=== PATIENT | female | born 1975 | race Two or more races ===

== ENCOUNTER 2020-04-30 11:10 | Emergency (ER) | payer MEDICAID ==
[~2020-04-30] VITALS: Ht 157.5 cm; Wt 65.8 kg
--- NOTE | 2020-04-30 11:23 | NUR ---
DR PARADA AT BEDSIDE FOR EVAL.
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
[2020-04-30 11:32] VITALS: BP 117/72
[2020-04-30 11:48] LABS: BASOPHILS % (AUTO) 0.1 % (0.0-2.0); EOSINOPHILS % (AUTO) 5.1 % (0.0-6.0); HEMATOCRIT 35 % (33-45); HEMOGLOBIN 11.6 g/dL (11.5-14.8); LYMPHOCYTES # (AUTO) 0.9 /CMM (0.8-4.8); LYMPHOCYTES % (AUTO) 26.1 % (20.0-44.0); MEAN CORPUSCULAR HGB CONC 33 g/dl (31.0-36.0); MEAN CORPUSCULAR VOLUME 94 fL (82-100); MONOCYTES # (AUTO) 0.5 /CMM (0.1-1.30); MONOCYTES % (AUTO) 14.5 % (2.0-12.0); NEUTROPHILS # (AUTO) 1.8 /CMM (1.8-8.9); NEUTROPHILS % (AUTO) 54.2 % (43.0-81.0); PLATELET COUNT (AUTO) 150 /CMM (150-450); RED BLOOD CELL COUNT(AUTO) 3.76 MIL/uL (4.0-5.2); WHITE BLOOD COUNT (AUTO) 3.4 K/uL (4.3-11.0)
[2020-04-30 11:55] LABS: CALCIUM, SERUM 8.3 mg/dL (8.5-10.1); CARBON DIOXIDE 21 mmol/L (21-32); CHLORIDE 104 mmol/L (98-107); CREATININE 0.6 mg/dL (0.6-1.3); GLUCOSE 146 mg/dL (74-106); POTASSIUM 3.7 mmol/L (3.5-5.1); SODIUM SERUM 136 mmol/L (136-145); UREA NITROGEN, BLOOD 9 mg/dL (7-18)
[2020-04-30 11:56] LABS: APPEARANCE,URINE CLEAR (CLEAR); BILIRUBIN,URINE NEGATIVE (NEGATIVE); BLOOD, URINE NEGATIVE Ery/uL (NEGATIVE); COLOR,URINE YELLOW (YELLOW); KETONES,URINE NEGATIVE (NEGATIVE); LEUKOCYTE ESTERASE ,URINE NEGATIVE (NEGATIVE); NITRITE, URINE NEGATIVE (NEGATIVE); PROTEIN,URINE NEGATIVE (NEGATIVE); UGLUCOSE NEGATIVE (NEGATIVE); UROBILINOGEN,URINE 0.2 EU/dL (0.2)
[2020-04-30] MEDS ORDERED: TDAP [DIPH/PERTUSSIS/TET] 0.5 ML VIAL IM ONE ×2 (12:00→12:02)
[2020-04-30 12:01] LABS: ALANINE AMINOTRANSFERASE 32 U/L (12-78); ALBUMIN 2.8 g/dL (3.4-5.0); ALCOHOL, BLOOD 108 mg/dL (0-0); ALKALINE PHOSPHATASE 151 U/L (46-116); ASPARTATE AMINOTRANSFERASE 44 U/L (15-37); BILIRUBIN,DIRECT 0.4 mg/dL (0.0-0.2); BILIRUBIN,TOTAL 0.9 mg/dL (0.2-1.0); TOTAL PROTEIN, SERUM 6.7 g/dL (6.4-8.2)
[2020-04-30 12:02] LABS: ACETAMINOPHEN < 10 ug/ml (10-30); SALICYLATE < 2.8 mg/dL (2.8-20.0)
--- NOTE | 2020-04-30 12:14 | NUR ---
PT GIVEN TETANUS GIVEN LEFT DELTID IM
--- NOTE | 2020-04-30 12:17 | NUR ---
CHRISTIAN COUNSELOR CALLED [facility] [phone] WILL BE HERE IN 60 MINS.
--- NOTE | 2020-04-30 12:25 | NUR ---
WOUND CARE PROVIDED.
--- NOTE | 2020-04-30 13:15 | NUR ---
WAS INFORMED BY LAYO THAT PT ELOPED FROM ED. PT DID TOLD AARONTER THAT SHE IS NOT SUICIDAL AND DOES NOT WISH TO STAY FOR A PET EVAL. DR PARADA MADE AWARE.
== END 2020-04-30 13:19 | disposition left against medical advice (07) ==
LOC: ER 11:15
DX: S61.512A Laceration without foreign body of left wrist, initial encounter (principal); S61.511A Laceration without foreign body of right wrist, initial encounter; F32.9 Major depressive disorder, single episode, unspecified; F10.129 Alcohol abuse with intoxication, unspecified; F41.9 Anxiety disorder, unspecified; F43.10 Post-traumatic stress disorder, unspecified; G62.9 Polyneuropathy, unspecified; Z88.6 Allergy status to analgesic agent; X78.8XXA Intentional self-harm by other sharp object, initial encounter; Y93.89 Activity, other specified; Y92.89 Other specified places as the place of occurrence of the external cause; Y99.8 Other external cause status; Y90.5 Blood alcohol level of 100-119 mg/100 ml
CPT/HCPCS: 36415; 80048; 80076; 80305; 80307; 80329; 81001; 84703; 85025; 90471; 90715; 99283; G0480; 81000-TC

== ENCOUNTER 2020-11-09 02:44 | Emergency (ER) | payer MEDICAID ==
[~2020-11-09] VITALS: Ht 157.5 cm; Wt 68.0 kg
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
--- NOTE | 2020-11-09 03:02 | NUR ---
[employer] AT BEDSIDE SPEAKING WITH MARKUSNET.
--- NOTE | 2020-11-09 04:19 | NUR ---
PATIENT EXPLAINED NOT TO WIPE WHEN URINATING SO THAT SHE WOULD NOT WIPE OFF EVIDENCE BEFORE BEING SEEN BY SART.
[2020-11-09] MEDS ORDERED: IBUPROFEN 600 MG TABLET ONE (05:36)
[2020-11-09] MEDS: IBUPROFEN 600 MG TABLET PO ONE (06:08)
--- NOTE | 2020-11-09 06:26 | NUR ---
pt is medically stalbe for d/c. Patient discharged to home in stable condition. Written and verbal after care instructions given. Patient verbalizes understanding of instruction.
[2020-11-09 06:27] VITALS: BP 118/88
== END 2020-11-09 06:29 | disposition home or self-care (01) ==
LOC: ER 02:46
DX: T76.21XA Adult sexual abuse, suspected, initial encounter (principal); F32.9 Major depressive disorder, single episode, unspecified; F41.9 Anxiety disorder, unspecified; F43.10 Post-traumatic stress disorder, unspecified; F10.10 Alcohol abuse, uncomplicated; Y90.9 Presence of alcohol in blood, level not specified; Z90.49 Acquired absence of other specified parts of digestive tract; Z88.0 Allergy status to penicillin; Z88.1 Allergy status to other antibiotic agents; Z88.6 Allergy status to analgesic agent; Z88.5 Allergy status to narcotic agent

== ENCOUNTER 2020-11-26 03:03 | Emergency (ER) | payer MEDICAID ==
[~2020-11-26] VITALS: Ht 157.5 cm; Wt 62.1 kg
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
[2020-11-26 03:33] LABS: BASOPHILS % (AUTO) 0.2 % (0.0-2.0); EOSINOPHILS % (AUTO) 3.8 % (0.0-6.0); HEMATOCRIT 37 % (33-45); HEMOGLOBIN 12.2 g/dL (11.5-14.8); LYMPHOCYTES # (AUTO) 1.5 /CMM (0.8-4.8); LYMPHOCYTES % (AUTO) 26.5 % (20.0-44.0); MEAN CORPUSCULAR HGB CONC 33 g/dl (31.0-36.0); MEAN CORPUSCULAR VOLUME 95 fL (82-100); MONOCYTES # (AUTO) 0.9 /CMM (0.1-1.30); MONOCYTES % (AUTO) 16.2 % (2.0-12.0); NEUTROPHILS % (AUTO) 53.3 % (43.0-81.0); PLATELET COUNT (AUTO) 174 /CMM (150-450); RED BLOOD CELL COUNT(AUTO) 3.87 MIL/uL (4.0-5.2); WHITE BLOOD COUNT (AUTO) 5.7 K/uL (4.3-11.0)
[2020-11-26 03:58] LABS: CALCIUM, SERUM 8.6 mg/dL (8.5-10.1); CARBON DIOXIDE 23 mmol/L (21-32); CHLORIDE 105 mmol/L (98-107); CREATININE 0.8 mg/dL (0.6-1.3); GLUCOSE 80 mg/dL (74-106); POTASSIUM 3.6 mmol/L (3.5-5.1); SODIUM SERUM 142 mmol/L (136-145); UREA NITROGEN, BLOOD 14 mg/dL (7-18)
[2020-11-26 04:03] LABS: ALANINE AMINOTRANSFERASE 33 U/L (12-78); ALBUMIN 3.2 g/dL (3.4-5.0); ALCOHOL, BLOOD < 3 mg/dL (0-0); ALKALINE PHOSPHATASE 121 U/L (46-116); ASPARTATE AMINOTRANSFERASE 40 U/L (15-37); BILIRUBIN,DIRECT 0.5 mg/dL (0.0-0.2); BILIRUBIN,TOTAL 1.5 mg/dL (0.2-1.0); TOTAL PROTEIN, SERUM 7.2 g/dL (6.4-8.2)
[2020-11-26 04:07] LABS: ACETAMINOPHEN < 2 ug/ml (10-30)
[2020-11-26 04:55] LABS: BILIRUBIN,URINE NEGATIVE (NEGATIVE); COLOR,URINE YELLOW (YELLOW); PROTEIN,URINE NEGATIVE (NEGATIVE); UGLUCOSE NEGATIVE (NEGATIVE)
[2020-11-26 04:56] LABS: LEUKOCYTE ESTERASE ,URINE NEGATIVE (NEGATIVE); NITRITE, URINE NEGATIVE (NEGATIVE); UROBILINOGEN,URINE 0.2 EU/dL (0.2)
[2020-11-26 04:57] LABS: BACTERIA,URINE None seen /HPF (None Seen); MUCUS,URINE Many /LPF (None Seen); RBC,URINE 0-2 /HPF (0-2); SQUAMOUS EPITHELIAL CELL,UR Many /HPF (None Seen); WBC,URINE 0-2 /HPF (0-3)
[2020-11-26 06:03] LABS: EOSINOPHILS % (MANUAL) 5 % (0-4); LYMPHOCYTES % (MANUAL) 17 % (16-48); MONOCYTES % (MANUAL) 15 % (0-11.0); NEUTROPHILS % (MANUAL) 63 (42-76)
--- NOTE | 2020-11-26 06:07 | NUR ---
patient is sleeping. easily arousable, VSS. connected to electrical equipment technician. call light is within reach. sitter at bedside
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
--- NOTE | 2020-11-26 07:08 | NUR ---
Patient discharged to home in stable condition. Written and verbal after care instructions given. Patient verbalizes understanding of instruction.
[2020-11-26 07:09] VITALS: BP 127/83
== END 2020-11-26 07:09 | disposition home or self-care (01) ==
LOC: ER 03:06
DX: R46.1 Bizarre personal appearance (principal); G62.9 Polyneuropathy, unspecified; Z90.49 Acquired absence of other specified parts of digestive tract; Z88.0 Allergy status to penicillin; Z88.1 Allergy status to other antibiotic agents; Z88.5 Allergy status to narcotic agent; Z88.8 Allergy status to other drugs, medicaments and biological substances
CPT/HCPCS: 36415; 80048-TC; 80076-TC; 81001; 85025-TC; G0480

== ENCOUNTER 2024-08-19 16:21 | Emergency (ER) | payer MEDICAID ==
[~2024-08-19] VITALS: Ht 157.5 cm; Wt 59.9 kg
[2024-08-19] MEDS: IV NS 0.9% 1,000 ML BAG IV ONE (17:20)
[2024-08-19] MEDS ORDERED: MORPHINE SULFATE INJ 2 MG/ML DISP.SYRIN ONE (17:23)
[2024-08-19] MEDS: MORPHINE SULFATE INJ 2 MG/ML DISP.SYRIN IV ONE (17:25)
[2024-08-19 17:27] LABS: BASOPHILS % (AUTO) 0.1 % (0.0-2.0); EOSINOPHILS # (AUTO) 0.2 K/uL (0.0-0.7); EOSINOPHILS % (AUTO) 4.3 % (0.0-6.0); HEMATOCRIT 29 % (33-45); HEMOGLOBIN 9.9 g/dL (11.5-14.8); LYMPHOCYTES # (AUTO) 1.2 K/uL (0.8-4.8); LYMPHOCYTES % (AUTO) 26.7 % (20.0-44.0); MEAN CORPUSCULAR HEMOGLOBIN 32 PG (26.0-33.0); MEAN CORPUSCULAR HGB CONC 34 g/dl (31.0-36.0); MEAN CORPUSCULAR VOLUME 95 fL (82-100); MONOCYTES # (AUTO) 0.7 K/uL (0.1-1.30); MONOCYTES % (AUTO) 15.5 % (2.0-12.0); NEUTROPHILS # (AUTO) 2.3 K/uL (1.8-8.9); NEUTROPHILS % (AUTO) 53.4 % (43.0-81.0); PLATELET COUNT (AUTO) 116 K/uL (150-450); RED BLOOD CELL COUNT(AUTO) 3.09 MIL/uL (4.0-5.2); RED CELL DISTRIBUTION WIDTH 15.5 % (11.5-15.0); WHITE BLOOD COUNT (AUTO) 4.3 K/uL (4.3-11.0)
[2024-08-19 17:49] LABS: CALCIUM, SERUM 8.4 mg/dL (8.5-10.1); CREATININE 0.7 mg/dL (0.6-1.3); POTASSIUM 3.8 mmol/L (3.5-5.1)
[2024-08-19 19:00] LABS: INR 1.18 (0.91-1.10); PROTHROMBIN TIME 12.1 SECS (9.2-11.1)
[2024-08-19 19:11] LABS: ALBUMIN 2.6 g/dL (3.4-5.0); BILIRUBIN,DIRECT 0.5 mg/dL (0.0-0.2); TOTAL PROTEIN, SERUM 5.8 g/dL (6.4-8.2)
[2024-08-19 21:53] VITALS: BP 122/80; TEMP 98.6; O2SAT 99
== END 2024-08-19 21:53 | disposition home or self-care (01) ==
LOC: ER 16:58
DX: K62.5 Hemorrhage of anus and rectum (principal); R10.30 Lower abdominal pain, unspecified; R11.0 Nausea; J45.909 Unspecified asthma, uncomplicated; K74.60 Unspecified cirrhosis of liver; F32.9 Major depressive disorder, single episode, unspecified; R10.2 Pelvic and perineal pain; Z87.19 Personal history of other diseases of the digestive system; Z88.0 Allergy status to penicillin; Z88.5 Allergy status to narcotic agent; Z88.8 Allergy status to other drugs, medicaments and biological substances; Z90.49 Acquired absence of other specified parts of digestive tract; Z91.041 Radiographic dye allergy status; Z86.69 Personal history of other diseases of the nervous system and sense organs
CPT/HCPCS: 99285; 74176; 96374; 96361; 85025; 80048; 80076; 36415; 85730; 84702; J7030; J2270

== ENCOUNTER 2025-07-19 16:58 | Emergency (ER) | payer MEDICAID ==
[~2025-07-19] VITALS: Ht 157.5 cm; Wt 77.1 kg
[2025-07-19 17:05] VITALS: TEMP 98.4
[2025-07-19] MEDS ORDERED: ONDANSETRON HCL/PF 4 MG/2 ML VIAL ONE (17:32)
[2025-07-19] MEDS ORDERED: FAMOTIDINE/PF INJ 20 MG/2 ML VIAL IV ONE (17:32)
[2025-07-19] MEDS ORDERED: MORPHINE SULFATE INJ 2 MG/ML DISP.SYRIN ONE (17:32)
[2025-07-19 17:37] LABS: PLATELET COUNT (AUTO) 140 K/uL (150-450); RED BLOOD CELL COUNT(AUTO) 3.67 MIL/uL (4.0-5.2); RED CELL DISTRIBUTION WIDTH 18.5 % (11.5-15.0); WHITE BLOOD COUNT (AUTO) 4.1 K/uL (4.3-11.0)
[2025-07-19 17:38] LABS: APPEARANCE,URINE CLEAR (CLEAR); BLOOD, URINE Trace-intact Ery/uL (NEGATIVE); LEUKOCYTE ESTERASE ,URINE Trace (NEGATIVE); NITRITE, URINE NEGATIVE (NEGATIVE); UGLUCOSE Negative (NEGATIVE)
[2025-07-19 17:39] LABS: ADD URINE CULTURE NO
[2025-07-19 17:40] LABS: SQUAMOUS EPITHELIAL CELL,UR Few /HPF (None Seen)
[2025-07-19] MEDS: ONDANSETRON HCL/PF 4 MG/2 ML VIAL IVP ONE (17:40)
[2025-07-19] MEDS: FAMOTIDINE/PF INJ 20 MG/2 ML VIAL IV ONE (17:40)
[2025-07-19] MEDS: IV NS 0.9% 1,000 ML BAG IV ONE (17:40)
[2025-07-19] MEDS: MORPHINE SULFATE INJ 2 MG/ML DISP.SYRIN IV ONE (17:41)
[2025-07-19 17:44] LABS: CALCIUM, SERUM 8.8 mg/dL (8.5-10.1); CREATININE 0.7 mg/dL (0.6-1.3); SODIUM SERUM 137 mmol/L (136-145); UREA NITROGEN, BLOOD 11 mg/dL (7-18)
[2025-07-19 17:50] LABS: ASPARTATE AMINOTRANSFERASE 31 U/L (15-37); TOTAL PROTEIN, SERUM 6.9 g/dL (6.4-8.2)
[2025-07-19] MEDS ORDERED: CYCL5TAB PO (18:36)
[2025-07-19] MEDS: oxyCODONE/APAP (5/325 MG) 1 UDTAB TABLET PO ONE (18:52)
[2025-07-19] MEDS: CYCLOBENZAPRINE 10 MG TABLET PO ONE (18:52)
[2025-07-19 18:53] VITALS: BP 127/66; O2SAT 99
== END 2025-07-19 18:54 | disposition home or self-care (01) ==
LOC: ER 17:07
DX: M54.50 Low back pain, unspecified (principal); J45.909 Unspecified asthma, uncomplicated; K74.60 Unspecified cirrhosis of liver; F32.A Depression, unspecified; F41.9 Anxiety disorder, unspecified; R07.89 Other chest pain; R10.20 Pelvic and perineal pain unspecified side; Z88.0 Allergy status to penicillin; Z88.5 Allergy status to narcotic agent; Z88.8 Allergy status to other drugs, medicaments and biological substances; Z90.49 Acquired absence of other specified parts of digestive tract
CPT/HCPCS: 99285; 74176; 96374; 96375; 96361; 93005; 85025; 80048; 87086; 83690; 80076; 81001; 36415; 84484; J1308; J2405; J7030; J2270

== ENCOUNTER 2025-07-21 15:07 | Emergency (ER) | payer MEDICAID ==
[~2025-07-21] VITALS: Ht 157.5 cm; Wt 77.1 kg
[~2025-07-21 15:07] MED LIST: CYCL5TAB PO
[2025-07-21] MEDS ORDERED: dexaMETHasone SOD PHOSPHATE 4 MG/ML VIAL ONE (15:37)
[2025-07-21] MEDS ORDERED: KETOROLAC TROMETHAMINE INJ 30 MG/ML VIAL ONE (15:37)
[2025-07-21] MEDS: KETOROLAC TROMETHAMINE INJ 30 MG/ML VIAL IM ONE (15:40)
[2025-07-21] MEDS: dexaMETHasone SOD PHOSPHATE 4 MG/ML VIAL IM ONE (15:40)
[2025-07-21] MEDS ORDERED: LIDO30AD10 TP (15:45)
[2025-07-21] MEDS ORDERED: ACET-2030 PO (15:45)
[2025-07-21 15:47] LABS: APPEARANCE,URINE CLEAR (CLEAR); BLOOD, URINE TRACE-INTA Ery/uL (NEGATIVE); LEUKOCYTE ESTERASE ,URINE 1+ (NEGATIVE); NITRITE, URINE NEGATIVE (NEGATIVE); UGLUCOSE NEGATIVE (NEGATIVE)
[2025-07-21 15:58] LABS: ADD URINE CULTURE YES; SQUAMOUS EPITHELIAL CELL,UR Many /HPF (None Seen)
[2025-07-21] MEDS ORDERED: MORPHINE SULFATE INJ 2 MG/ML DISP.SYRIN ONE (16:21)
[2025-07-21] MEDS: MORPHINE SULFATE INJ 2 MG/ML DISP.SYRIN IM ONE (16:26)
[2025-07-21 16:45] VITALS: BP 127/74; TEMP 98.7; O2SAT 100
== END 2025-07-21 16:45 | disposition home or self-care (01) ==
LOC: ER 15:09
DX: M54.50 Low back pain, unspecified (principal); J45.909 Unspecified asthma, uncomplicated; K74.60 Unspecified cirrhosis of liver; F41.9 Anxiety disorder, unspecified; F32.A Depression, unspecified; R10.20 Pelvic and perineal pain unspecified side; Z88.0 Allergy status to penicillin; Z88.5 Allergy status to narcotic agent; Z88.8 Allergy status to other drugs, medicaments and biological substances; Z90.49 Acquired absence of other specified parts of digestive tract
CPT/HCPCS: 99284; 96372; 87086; 81001; J1885; J1100; J2270

== ENCOUNTER 2025-07-23 05:40 | Emergency (ER) | payer MEDICAID ==
[~2025-07-23] VITALS: Ht 157.5 cm; Wt 77.1 kg
[~2025-07-23 05:40] MED LIST changes: +ACET-2030 PO; +LIDO30AD10 TP
[2025-07-23] MEDS ORDERED: HYDROCODONE/APAP 5/325MG TABLET ONE (06:55)
[2025-07-23] MEDS ORDERED: BACLOFEN (10 MG) 10 MG TABLET ONE (06:55)
[2025-07-23] MEDS ORDERED: KETOROLAC TROMETHAMINE INJ 30 MG/ML VIAL ONE (06:55)
[2025-07-23] MEDS ORDERED: LIDOCAINE 5% (PATCH) 1 EA PATCH TP ONE (06:56)
[2025-07-23] MEDS: BACLOFEN (10 MG) 10 MG TABLET PO ONE (07:11)
[2025-07-23] MEDS: KETOROLAC TROMETHAMINE INJ 30 MG/ML VIAL IM ONE (07:11)
[2025-07-23] MEDS: HYDROCODONE/APAP 5/325MG TABLET PO ONE (07:12)
[2025-07-23] MEDS: LIDOCAINE 5% (PATCH) 1 EA PATCH TP SCH (07:12)
[2025-07-23] MEDS ORDERED: LIDO30AD10 TP (07:33)
[2025-07-23] MEDS ORDERED: BACL10TA PO (07:33)
[2025-07-23] MEDS ORDERED: HYDR-4209 PO (07:33)
[2025-07-23 07:36] VITALS: BP 141/87; TEMP 98.6; O2SAT 100
== END 2025-07-23 07:38 | disposition home or self-care (01) ==
LOC: ER 05:43
DX: M54.42 Lumbago with sciatica, left side (principal); G62.9 Polyneuropathy, unspecified; J45.909 Unspecified asthma, uncomplicated; K74.60 Unspecified cirrhosis of liver; M51.26 Other intervertebral disc displacement, lumbar region; Z79.899 Other long term (current) drug therapy; Z88.0 Allergy status to penicillin; Z88.5 Allergy status to narcotic agent; Z88.8 Allergy status to other drugs, medicaments and biological substances; Z90.49 Acquired absence of other specified parts of digestive tract
CPT/HCPCS: 99284; 96372 ×2; J1885; J2919